=== PATIENT | female | born 1935 | race Caucasian/White ===

== ENCOUNTER 2018-02-08 12:47 | Emergency (ER) | payer OTHER ==
[~2018-02-08] VITALS: Ht 149.9 cm; Wt 73.0 kg
[2018-02-08 12:58] VITALS: Ht 149.9 cm; Wt 73.0 kg
[2018-02-08 15:14] VITALS: BP 150/74
== END 2018-02-08 15:14 | disposition home or self-care (01) ==
LOC: ED 12:47
DX: R51 Headache (principal); F43.0 Acute stress reaction; I10 Essential (primary) hypertension; E78.00 Pure hypercholesterolemia, unspecified; Z98.890 Other specified postprocedural states
CPT/HCPCS: J1885

== ENCOUNTER 2018-02-10 09:45 | Inpatient (IN) | payer OTHER ==
[~2018-02-10] VITALS: Ht 152.4 cm; Wt 72.8 kg
[2018-02-10 10:11] VITALS: Ht 152.4 cm; Wt 72.8 kg
[2018-02-10 10:44] LABS: BASOPHIL % 0.4 % (0-2); PLATELET COUNT 173 x10^3mcL (130-400); RED CELL DISTRIBUTION WIDTH 13.6 % (11.5-14.5)
[2018-02-10 10:53] LABS: CALCIUM 9.2 mg/dL (8.5-10.1); CARBON DIOXIDE 25.5 mmol/L (21-32); CHLORIDE SERUM 98 mmol/L (98-107); CREATININE SERUM 0.8 mg/dL (0.6-1.0); GLUCOSE SERUM 177 mg/dL (74-106); POTASSIUM SERUM 3.2 mmol/L (3.5-5.1); SODIUM SERUM 137 mmol/L (136-145)
[2018-02-10 11:00] LABS: ALBUMIN 3.6 g/dL (3.4-5.0); ALKALINE PHOSPHATASE 74 U/L (46-116); ALT/SGPT 13 U/L (14-59); AST/SGOT 25 U/L (15-37); BILIRUBIN TOTAL 0.49 mg/dL (0.20-1.00); TOTAL PROTEIN, SERUM 8.1 g/dL (6.4-8.2)
[2018-02-10 11:26] LABS: UA SPECIFIC GRAVITY >=1.030 (1.005-1.035); microscopic required? YES; urine erythrocyte 2+ (NEGATIVE)
[2018-02-10 14:13] VITALS: BP 174/60
[2018-02-10] MEDS ORDERED: NOR10 PO (14:42)
[2018-02-10] MEDS ORDERED: HYD25 PO (14:43)
[2018-02-10] MEDS ORDERED: CYMBALTA60 M1 PO (14:51)
[2018-02-10] MEDS ORDERED: PRO40 PO (14:52)
[2018-02-10] MEDS ORDERED: NATURAL IRON65 MG PO (14:53)
[2018-02-10] MEDS ORDERED: ZOCOR10 MG PO (14:53)
[2018-02-10] MEDS ORDERED: BAYER ASPIRIN R81 MG PO (14:53)
[2018-02-10 16:58] VITALS: BP 188/76
[2018-02-10 20:43] VITALS: BP 161/69; BP 161/693
[2018-02-11 05:50] VITALS: BP 164/63
[2018-02-11 07:37] LABS: CALCIUM 8.6 mg/dL (8.5-10.1); CARBON DIOXIDE 25.6 mmol/L (21-32); CHLORIDE SERUM 105 mmol/L (98-107); CREATININE SERUM 0.6 mg/dL (0.6-1.0); GLUCOSE SERUM 129 mg/dL (74-106); POTASSIUM SERUM 3.6 mmol/L (3.5-5.1); SODIUM SERUM 141 mmol/L (136-145)
[2018-02-11 07:38] LABS: PLATELET COUNT 147 x10^3mcL (130-400); RED CELL DISTRIBUTION WIDTH 12.5 % (11.5-14.5)
[2018-02-11 08:42] VITALS: BP 145/56
[2018-02-11 11:07] LABS: BAND NEUTROPHIL 5 % (0-10); MONOCYTE 16 % (0-7); SEGMENTED NEUTROPHILS 63 % (37-75); rbc morphology (normal/abnorm) NORMAL (NORMAL)
[2018-02-11 17:07] VITALS: BP 146/62
[2018-02-11 20:24] VITALS: BP 126/75
[2018-02-12] VITALS (8 sets, daily range): BP systolic 144–177; BP diastolic 54–75
[2018-02-13 01:26] VITALS: BP 177/75
[2018-02-13 05:03] VITALS: BP 146/56
[2018-02-13 07:52] VITALS: BP 145/59
== END 2018-02-13 10:27 | disposition home or self-care (01) | DRG 872 ==
LOC: ED 09:45 → MU 12:16
PROVIDERS: Emergency Medicine; Internal Medicine Pulmonary Disease
DX: A41.9 Sepsis, unspecified organism (principal); L03.811 Cellulitis of head [any part, except face]; B02.8 Zoster with other complications; E87.6 Hypokalemia; I10 Essential (primary) hypertension; E78.5 Hyperlipidemia, unspecified; Z79.82 Long term (current) use of aspirin
CPT/HCPCS: J0133; J0295; J0690; J3480; J3490; J7030; J7050; J7512; Q0092